=== PATIENT | male | born 1995 | race Caucasian/White ===

== ENCOUNTER 2021-03-31 01:23 | Emergency (ER) | payer SELFPAY ==
[~2021-03-31] VITALS: Ht 175.3 cm; Wt 69.9 kg
[2021-03-31 02:28] VITALS: BP 132/81
[2021-03-31] MEDS ORDERED: LIDOCAINE VISCOUS 2% UD 15 ML UDC ONE (02:46)
[2021-03-31] MEDS ORDERED: MAG HYDROX/AL HYDROX/SIMETH 30 ML UDC ONE (02:46)
[2021-03-31] MEDS ORDERED: MAG HYDROX/AL HYDROX/SIMETH 30 ML UDC PO ONE (03:00)
[2021-03-31] MEDS ORDERED: LIDOCAINE VISCOUS 2% UD 15 ML UDC MM ONE (03:00)
[2021-03-31] MEDS ORDERED: FAMO-131 PO (03:12)
--- NOTE | 2021-03-31 03:59 | NUR ---
Patient discharged to home in stable condition. Written and verbal after care instructions given. Patient verbalizes understanding of instruction.
== END 2021-03-31 04:00 | disposition home or self-care (01) ==
LOC: ER 01:34
DX: K29.70 Gastritis, unspecified, without bleeding (principal)